=== PATIENT | male | born 1980 | race Caucasian/White ===

== ENCOUNTER 2025-05-08 15:46 | Emergency (ER) | payer MEDICAID ==
[~2025-05-08] VITALS: Ht 170.2 cm; Wt 82.0 kg
[2025-05-08 15:47] VITALS: O2SAT 96
[2025-05-08] MEDS: NALOXONE HCL 1MG/ML 2ML VIAL IV ONE (16:13)
[2025-05-08] MEDS: ONDANSETRON HCL 4MG/2ML INJ IV ONE (16:13)
[2025-05-08] MEDS: SODIUM CHLORIDE 0.9% 1,000 ML IV ONE (16:13)
[2025-05-08 16:24] LABS: BASOPHILS % 0.6 % (0.0-2.0); EOSINOPHILS % 0.8 % (0.0-5.0); HEMATOCRIT. 39.2 % (42.0-52.0); HEMOGLOBIN. 13.2 g/dL (14.0-18.0); LYMPHOCYTES % 36.5 % (20.0-50.0); MEAN PLATELET VOLUME 7.2 fl (7.4-10.4); MONOCYTES % 10.9 % (2.0-8.0); NEUTROPHILS % 51.2 % (40.0-76.0); PLATELET 249 x1000/uL (130-400); RED BLOOD CELL COUNT 4.07 mill/uL (4.7-6.1); RED CELL DISTRIBUTION WIDTH 12.6 % (11.6-14.6)
[2025-05-08 16:41] LABS: CREATININE 1.0 mg/dL (0.6-1.3); TROPONIN I HIGH SENSITIVITY < 4 ng/L (3.0-53); UREA NITROGEN BLOOD 9 mg/dL (9-23)
[2025-05-08 16:43] LABS: ASPARTATE AMINOTRANSFERASE 40 IU/L (<34); BILIRUBIN DIRECT 0.1 mg/dL (<=3.0); BILIRUBIN TOTAL 0.4 mg/dL (0.1-1.0); PROTEIN TOTAL 7.3 g/dL (6.0-8.3)
[2025-05-08] MEDS ORDERED: NALO4SPR BOTHNSTRLS (16:48)
[2025-05-08 16:51] VITALS: BP 130/76; PULSE 90; RESP 12; TEMP 37.1; O2SAT 100
== END 2025-05-08 16:55 | disposition home or self-care (01) ==
LOC: ER 15:52 → CANBEDREQ 16:51 → ER 16:55
DX: T40.601A Poisoning by unspecified narcotics, accidental (unintentional), initial encounter (principal); R06.02 Shortness of breath; X58.XXXA Exposure to other specified factors, initial encounter; Y93.89 Activity, other specified; Y92.89 Other specified places as the place of occurrence of the external cause; Y99.8 Other external cause status
CPT/HCPCS: 80076; 80048; 80320; 83880; 83605; 85025; 84484; 36415; 93005; 96361; 96374; 96375; 99284; J2312; J2405; J7030; Z7610; G0480